=== PATIENT | female | born 1965 | race Caucasian/White ===

== ENCOUNTER → 2021-04-26 | Outpatient (CLI) | payer BC ==
--- NOTE | 2021-04-26 19:16 | CARD ---
MR#: [id number] Date of Study: 04/26/2021 Ordering Physician: TYESHA LLOYD, Referring Physician: Inez HERNANDEZ: Jose Whitfield [facility] APPROVED REPORT EXAM: Two-dimensional and M-mode echocardiogram with Doppler and color Doppler. Other Information Quality : AverageHR: 69bpm Rhythm : NSR INDICATION Congestive Heart Failure RISK FACTORS Hypertension Family History 2D DIMENSIONS Left Atrium(2D)3.3 (1.6-4.0cm)IVSd0.9 (0.7-1.1cm) Aortic Root(2D)2.9 (2.0-3.7cm)LVDd3.9 (3.9-5.9cm) LVOT Diameter2.0 (1.8-2.4cm)PWd1.0 (0.7-1.1cm) LVDs2.4 (2.5-4.0cm)FS (%) 38.6 % SV44.9 mlLVEF(%)69.7 (>50%) Aortic Valve AoV Peak Hal.118.9cm/sAoV VTI26.3cm AO Peak GR.5.7mmHgLVOT Peak Hal.80.2cm/s AO Mean GR.3mmHgAVA (VMAX)2.21cm2 Mitral Valve MV E Pfpneuxy060.2cm/sMV E Peak Gr.4mmHg MV DECEL [id number] A Wfjphlqs68.9cm/s MV E Mean Gr.1mmHgE/A Ratio1.8 Pulmonary Valve PV Peak Mrkemond95.3cm/s Tricuspid Valve TR P. Uclesuit106hb/sTR Peak Gr.22mmHg Pulmonary Vein S1 Rlxkdhov26.3cm/sD2 Jrsluosa58.4cm/s LEFT VENTRICLE The left ventricle is normal size. There is normal left ventricular wall thickness. The left ventricu lar systolic function is normal and the ejection fraction is within normal range. EF 55% There is nor mal LV segmental wall motion. Tissue Doppler imaging reveals mild left ventricular diastolic dysfunct ion. RIGHT VENTRICLE The right ventricle is normal size. There is normal right ventricular wall thickness. The right ventr icular systolic function is normal. ATRIA The left atrium is borderline dilated. The right atrium size is normal. The interatrial septum is int act with no evidence for an atrial septal defect or patent foramen ovale as noted on 2-D or Doppler i maging. AORTIC VALVE The aortic valve is normal in structure and function. Doppler and Color Flow revealed no significant aortic regurgitation. There is no significant aortic valvular stenosis. There is no aortic valvular v egetation. MITRAL VALVE The mitral valve is normal in structure and function. There is no evidence of mitral valve prolapse. There is no mitral valve stenosis. Doppler and Color-flow revealed trace mitral regurgitation. TRICUSPID VALVE The tricuspid valve is normal in structure and function. Doppler and Color Flow revealed trace to mil d tricuspid regurgitation. RVSP 25 mm Hg There is no tricuspid valve prolapse or vegetation. There is no tricuspid valve stenosis. PULMONIC VALVE Not well seen Doppler and Color Flow revealed no pulmonic valvular regurgitation. There is no pulmoni c valvular stenosis. GREAT VESSELS The aortic root is normal in size. The ascending aorta is normal in size. The IVC is normal in size a nd collapses >50% with inspiration. PERICARDIAL EFFUSION There is no pleural effusion. There is no evidence of significant pericardial effusion. Critical Notification Critical Value: No <Conclusion> The left ventricular systolic function is normal and the ejection fraction is within normal range. EF 55% There is normal LV segmental wall motion. Signed by : Dago Li, Electronically Approved : 04/26/2021 19:15:57
== END ==
LOC: ECHO 15:01
PROVIDERS: ATTEND Internal Medicine Cardiovascular Disease
DX: I36.1 Nonrheumatic tricuspid (valve) insufficiency (principal); I50.32 Chronic diastolic (congestive) heart failure
CPT/HCPCS: 93306; C8929

== ENCOUNTER → 2021-07-08 | Outpatient (CLI) | payer BC ==
[~2021-07-08] MED LIST: REGADENOSON 0.4 MG/5 ML DISP.SYRIN. IV ONE
--- NOTE | 2021-07-08 16:46 | RAD ---
MR#: [id number] Date of Study: 07/08/2021 Ordering Physician: TYESHA LLOYD, Referring Physician: INDRA HERNANDEZ Tech: RT Jaleesa (R) (N) APPROVED REPORT Test Type: Pharmacological Stress Nurse/Tech: Zoraida Khalil R.N. Test Indications: syncope Cardiac History: htn, PE, dia Medications: See Electronic Medical Record Medical History: See Electronic Medical Record Resting ECG: sr Resting Heart Rate: 72 bpm Resting Blood Pressure: 137/73mmHg Pretest Chest Pain: No chest pain Nurse/Tech Notes lungs cta, heart tones regular Consent: The procedure was explained to the patient in lay terms. Informed consent was witnessed. Josiah eout was entered into [employer]. History and Stress Test performed by JAY Kam, ANNIKA (R) (N) Pharm. Details Pharmacologic stress testing was performed using 0.4mg per 5ml of regadenoson given intravenously ove r 7-10 seconds. Stress Symptoms pt c/o chest pressure and gomez POST EXERCISE Reason for Termination: Infusion complete Max HR: 132 bpm Max Blood Pressure: 147/73mmHg Chest Pain: . chest pressure Arrhythmia: Yes. unifocal PVCs noted sporadically ST Change: No. INTERPRETATION Stress EKG Conclusion: Baseline EKG showed sinus rhythm. No ischemic changes at peak stress. Few PV C's without any significant arrhythmias. Imaging Protocol IMAGE PROTOCOL: Rest Tc-99m/stress Tc-99m 1 day Rest: Stress: Viability: Radiopharm.Tc99m MkeuecmdiOq35p Sestamibi Dose9.5mCi 30mCi Duration 15min. 10min. Img Date 07/08/2021 07/08/2021 Inj-Img Gegs61lhz. 60min. Rest Admin Site:IV - Right AntecubitalAdministrator:JAY Kam ARRT (Dariana)(N) Stress Admin Site: IV - Right AntecubitalAdministrator: JAY Kam ARRT (R)(N) STRESS DATA End Diast. Vol.62.0mlAv. Heart Rate86.0bpm End Syst. Vol.20.0mlCO Index BSA0.0L/min Myocardial Ldlh668.0gEject. Uqydbxwl53.0% Stress Rates Pk. Fill Rate5.26EDV/secLVtime Pk. Fill 112.00msec Pk. Empty Rate4.38ESV/secLVtime Pk. Zpuei236.52msec 1/3 Pk. Fill2.92EDV/sec Stress Scores Regional WT0.00Summed WT5.00 Regional WM0.00Summed WM5.00 Study quality was good. Left Ventricular size was Normal at Rest and Stress. Lung uptake was . Left Ventricular ejection fraction is 69%. The rest and stress images show normal perfusion, normal contraction and thickening. LV Perf. Quant 17 Seg. SSS0.00 17 Seg. SRS5.00 17 Seg. SDS0.00 Stress Defect Extent (% LAD)0.00Rest Defect Extent (% LAD)20.60Rev. Defect Extent (% LAD)0.00 Stress Defect Extent (% LCX) 0.00Rest Defect Extent (% LCX)8.80Rev. Defect Extent (% LCX)0.00 Stress Defect Extent (% RCA)0.00Rest Defect Extent (% RCA)2.20Rev. Defect Extent (% RCA)0.00 Stress Defect Extent (% NICOLE)0.00Rest Defect Extent (% NICOLE)12.40Rev. Defect Extent (% NICOLE)0.00 Conclusion 1. Regadenoson cardioisotope stress test did not show any evidence of ischemia or infarct. 2. Normal left ventricular systolic function with ejection fraction calculated at 69%. 3. Low risk for cardiac events. Signed by : Tyesha Lloyd, Electronically Approved : 07/08/2021 16:46:33
== END ==
LOC: NM 08:24
PROVIDERS: ATTEND Internal Medicine Cardiovascular Disease
DX: R07.9 Chest pain, unspecified (principal)
CPT/HCPCS: 78452; 93017; A9500; J2785